=== PATIENT | female | born 1980 | race Native Hawaiian/Other Pacific Islander ===

== ENCOUNTER 2016-10-11 18:55 | Emergency (ER) | payer OTHER ==
[2016-10-11 20:06] LABS: ABSOLUTE NEUTROPHIL COUNT 4.2 K/mm3 (1.8-7.7); BASO % 0.4 % (0.2-1.0); EOS # 0.1 (0.0-0.5); EOS % 0.9 % (0.9-2.9); HEMOGLOBIN 13.1 gm/l (12.0-16.0); IMM NEUT% 0.4 % (0-1); LYMPH # 1.9 (1.0-4.8); LYMPH % 28.1 % (15-45); MEAN CELL VOLUME 95.4 fl (81.0-99.0); MEAN CORPUSCULAR HGB CONC 33.6 g/dl (33.0-37.0); MEAN PLATELET VOLUME 10.5 fl (7.4-10.4); MONO # 0.6 (0.0-0.8); MONO % 8.2 % (4-12); PLATELET COUNT 182 K/mm3 (130-400); RED CELL DISTRIBUTION WIDTH 11.5 % (11.5-14.5)
--- NOTE | 2016-10-11 21:01 | US ---
OB COMP <14 WKS, OB TRANSVAGINAL HISTORY: with bleeding. The patient is expected to be at 5 weeks 5 days gestational age. COMPARISONS: None. FINDINGS: Transabdominal and transvaginal ultrasonography was performed demonstrating a normally contoured uterus. There is no intrauterine fluid collection visualized. The maternal right ovary measures 3.4 x 2.1 x 1.9 cm. The left ovary measures 3.7 x 1.6 x 1.6 cm. Flow is seen to both ovaries. There is a hypoechoic mass identified within the left adnexa situated between the left ovary and the uterus which measures 3.1 x 3.9 x 2.0 cm. Some peripheral flow is seen within this structure. No significant pelvic free fluid is visualized. IMPRESSION: 1. No intrauterine fluid collection visualized. 2. A 3.1 x 3.9 x 2.0 cm hypoechoic mass situated between the left ovary and the uterus. Though a discrete pole or gestational sac is not observed, the findings are suspicious for an ectopic gestation considering the patient's history. No significant free fluid is currently visualized. The findings were discussed with Dr. Burk at 2057 hours.
[2016-10-11 21:47] LABS: URINE BILIRUBIN NEGATIVE (NEGATIVE); URINE BLOOD 4+ (NEGATIVE); URINE GLUCOSE (UA) NEGATIVE (NEGATIVE); URINE LEUKOCYTE ESTERASE NEGATIVE (NEGATIVE); URINE NITRITE NEGATIVE (NEGATIVE); URINE PROTEIN NEGATIVE (NEGATIVE); URINE UROBILINOGEN NORMAL (0-1 mg/dl)
[2016-10-11 21:50] LABS: ALB/GLOB RATIO 1.5 (>1.0); ALBUMIN 4.4 gm/dL (3.5-5.7); CALCIUM 9.2 mg/dL (8.6-10.3)
[2016-10-11 22:12] LABS: URINE APPEARANCE CLEAR; URINE COLOR STRAW
[2016-10-11 22:20] LABS: URINE AMORPHOUS SEDIMENT FEW; URINE BACTERIA RARE; URINE RBC 0-2 /hpf; URINE WBC 0-2 /hpf
--- NOTE | 2016-10-12 06:45 | CONS ---
Carli Marks : 1980 Carli was seen in the emergency department on 10/11/2016. OUTSIDE LABORER consult requested by Dr. Burk. HISTORYOF PRESENT ILLNESS: Carli Marks is a 36-year-old ?, para 2-0-?-2 who came into the emergency room this evening because of bleeding. She has had a positive home test and was concerned that she was miscarrying. She has had several other miscarriages. The patient has a known diagnosis of protein S deficiency. She has had some blood clots in her legs in the past, which is how this was diagnosed. She was on Coumadin, but approximately three months ago she and her decided to try to conceive another . She therefore was switched to Lovenox and has been taking this faithfully every day. The patient's last menstrual period was 09/01/2016, she is therefore at approximately 5-1/2 weeks of amenorrhea. A week ago she realized that her period was late and she took a home test and it came back positive. She repeated it again the next day and again it was positive. She is having symptoms of including feeling tired. She has some nausea and queasiness particularly in the morning. She also has had significant breast tenderness. Last night she was feeling fine. She and her were sexually active and she did not have any pain. She woke up this morning, however, and was having some spotting. All day today she has continued to bleed and sometimes it is just light spotting, sometimes it is running out like a real period then it might stop and she wipes herself and there does not seem to be anything and then the bleeding starts again. She has not passed any clots. She has not passed anything that looks like tissue. She really has not had much pain or cramping until just this evening. She did have a couple of episodes of mild cramping. If anything her pain has been low down on the right side and it is very mild. The patient gives a history of fibromyalgia. She does live with chronic pain. She is not able to take NSAID's because of her blood clotting disorder. She is followed by a primary care provider who has given her Spur to use if she needs it for pain. Apparently, he initially prescribed 112 tablets per month, but the patient was horrified by this. She had him cut down her prescription. Typically she might use 5 to 7 Spur per month. She does have a prescription for the 7.5 mg hydrocodone. Generally she tries not use it and particularly since she conceived this she has not been taking any hydrocodone. Patient also is trying to eat healthy and avoid any other medications or exposure. The patient's workup in the emergency room included a quantitative beta HCG which came back 514. She also had a CBC that showed a hematocrit of 39%, hemoglobin 13.1, normal white blood cell count, normal platelet count of 182. She is A positive. She had an ultrasound which showed no evidence of an intrauterine . The ovaries appeared normal, but between the left ovary and the uterus there was a 3.9 x 3.1 x 2 cm hypoechoic cyst. There was no free fluid in the pelvis. The radiologist read this as suspicious for possible ectopic . It was for this reason that Dr. Burk asked me to consult on this patient. I did interview the patient and she is hopeful that this might be alright. On the other hand she is worried that this is yet another miscarriage. She has had several miscarriages and typically she has not needed a dilation and curettage. Typically she has been able to miscarrying on her own. Typically it also has happened early in the . PAST MEDICAL HISTORY: The patient also has some irritable bowel syndrome, osteoarthritis, and fibromyalgia. 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 PAST SURGICAL HISTORY: Includes a LEEP conization. She has also had a section once. SOCIAL HISTORY: Includes a history of anxiety of and depression. She is currently in a supportive relationship and denies any domestic violence. She rarely drinks alcohol and denies any recreational drug use. The patient's records from the emergency room as well as the ultrasound were reviewed. The patient's lab work and vital signs were reviewed. PHYSICAL EXAMINATION: After discussing her history a limited exam was performed. Carli appears healthy and has good color in her face. She is able to move around without difficulty and denies any lightheadedness or dizziness. GENERAL: She is alert and oriented x4. LUNGS: Clear to auscultation. No costovertebral tenderness. HEART: Regular rate and rhythm. ABDOMEN: Soft, normal bowel sounds, nontender. PELVIC: A pelvic exam was done by the emergency room physician who described some mild tenderness in the right side. The patient was having a small amount of bright red bleeding. I did not do a pelvic exam. The patient said that her bleeding had stopped. She saw no sign of bleeding at her last visit to the bathroom. She started having some cramping mostly after the ultrasound. IMPRESSION: Carli has a very early and most likely she is having a miscarriage. Possibly this is some exaggerated bleeding with implantation related to her Lovenox. It is possible that she could still have a viable . If she had an ectopic I do not think that it would measure 4 cm and I do not think it would be simply a hypoechoic cystic structure. This is not consistent with any pain. Clinically I doubt that this is an ectopic . I did talk at length with both Carli and her partner about the risks of ectopic , particularly when she is on Lovenox. We talked about the symptoms. It was decided that over the next couple of days the patient will avoid work, she will rest, drink plenty of fluids, and we will wait and watch and see what happens. The patient will at all times have a plan for someone to drive her to the emergency room if she should start to have heavy bleeding, lots of pain, any dizziness, or symptoms of low blood pressure. If everything feels normal whether the bleeding continues or not I would like Carli to repeat her quantitative beta HCG in 48 hours or more. We will then be in touch with her with these results and discuss the next step. If her beta HCG is increasing we may wait until next week and repeat her ultrasound. If her HCG is rapidly going down to 0 this is probably a miscarriage. If it is somewhere in between we may need to consider a diagnostic laparoscopy. The patient is comfortable with this plan. She will come back in two days for a repeat quantitative beta HCG. JOB: [id number]
== END 2016-10-11 22:37 | disposition home or self-care (01) ==
LOC: ED 18:55
DX: K58.9 Irritable bowel syndrome, unspecified (principal); M19.90 Unspecified osteoarthritis, unspecified site; Z86.718 Personal history of other venous thrombosis and embolism; O20.0 Threatened abortion; Z3A.01 Less than 8 weeks gestation of pregnancy